=== PATIENT | female | born 1965 | race American Indian/Alaskan Native ===

== ENCOUNTER 2017-05-27 11:43 | Emergency (ER) | payer OTHER ==
[2017-05-27 11:43] VITALS: BMI 33.9
[2017-05-27] MEDS ORDERED: Sodium Chloride 0.9% 1,000 ML IV ONE (12:14)
--- NOTE | 2017-05-27 12:14 | C.PDOC ---
History Of Present Illness Patient is a 52 y/o female, whose PMHx includes diabetes, that presents to the ED for evaluation of dizziness, lightheadedness, and generalized weakness since this morning. Patient notes blurry vision, and also reports feeling flushed, and not feeling well. Patient states that she is non-compliant with her Metformin medication for the last 8 months, but reports taking a dose today when she noticed her blood sugar level was high. Otherwise, denies any headache , numbness, fever, chills, chest pain, shortness of breath, or any other associated symptoms at this time. Time Seen by Provider: 05/27/17 12:09 Chief Complaint (Nursing): High Blood Sugar History Per: Patient History/Exam Limitations: no limitations Onset/Duration Of Symptoms: Hrs Current Symptoms Are (Timing): Still Present Causative (Exacerbating) Factor(s): Missed Taking Medication Associated Infectious Symptoms: denies: Cough, Sore Throat, Sinus Congestion, Dysuria, Urinary Urgency, Urinary Frequency, Nausea, Vomiting, Diarrhea Recent travel outside of the [place]: No Additional History Per: Patient Past Medical History Reviewed: Historical Data, Nursing Documentation, Vital Signs - Medical History PMH: Anemia, Diabetes, HTN Denies: Chronic Kidney Disease - [facility] Procedures ESOPHAGOGASTRODUODENOSCOPY [EGD] W/CLOSED BIOPSY (03/17/14) Family History: States: No Known Family Hx - Social History Hx Alcohol Use: Yes Hx Substance Use: No - Immunization History Hx Tetanus Toxoid Vaccination: No Hx Influenza Vaccination: No Review Of Systems Except As Marked, All Systems Reviewed And Found Negative. Constitutional: Positive for: Weakness. Negative for: Fever, Chills Eyes: Positive for: Vision Change (blurry vision) Cardiovascular: Positive for: Light Headedness. Negative for: Chest Pain, Palpitations Respiratory: Negative for: Cough, Shortness of Breath Gastrointestinal: Negative for: Nausea, Vomiting, Abdominal Pain Genitourinary: Negative for: Dysuria, Frequency Neurological: Positive for: Dizziness. Negative for: Weakness, Numbness, Headache Physical Exam - Physical Exam Appears: Non-toxic, No Acute Distress, Other (obese) Skin: Normal Color, Warm, Dry Head: Atraumatic, Normacephalic Eye(s): bilateral: Normal Inspection, EOMI Oral Mucosa: Dry Tongue: Other (dry tongue) Neck: Normal ROM, Supple Chest: Symmetrical, No Tenderness Cardiovascular: Rhythm Regular, No Murmur Respiratory: Normal Breath Sounds, No Rales, No Rhonchi, No Wheezing Gastrointestinal/Abdominal: Soft, No Tenderness Extremity: Normal ROM, No Pedal Edema, Capillary Refill (<2 sec.), No Deformity Neurological/Psych: Oriented x3, Normal Speech, Normal Cognition ED Course And Treatment - Laboratory Results Result Diagrams: 05/27/17 12:21 05/27/17 12:21 Lab Interpretation: Abnormal (WBC 11.1, BUN 26, Glucose 359) ECG: Interpreted By Me ECG Rhythm: Sinus Rhythm ECG Interpretation: Normal Progress Note: Labs ordered and reviewed. Patient was given IV fluids in the ER. Reevaluation Time: 15:26 Reassessment Condition: Improved (Better after IV fluids and SC Insulin.) Disposition Counseled Patient/Family Regarding: Studies Performed, Diagnosis, Need For Followup, Rx Given - Disposition Referrals: Miguel Stein MD [Staff Provider] - Disposition: HOME/ ROUTINE Disposition Time: 15:30 Condition: IMPROVED Prescriptions: metFORMIN [glucOPHAGE] 500 mg PO BID #60 tab Instructions: Diabetes Mellitus Type 2 in Adults (ED) - Clinical Impression Clinical Impression: Uncontrolled diabetes mellitus - Scribe Statement The provider has reviewed the documentation as recorded by the Petty Thompson Provider Attestation: All medical record entries made by the Petty were at my direction and personally dictated by me. I have reviewed the chart and agree that the record accurately reflects my personal performance of the history, physical exam, medical decision making, and the department course for this patient. I have also personally directed, reviewed, and agree with the discharge instructions and disposition.
[2017-05-27] MEDS ORDERED: Sodium Chloride 0.9% 1,000 ML ONE (12:21)
[2017-05-27 12:25] LABS: BASO # 0.1 K/uL (0.0-0.2); EOS # 0.2 K/uL (0.0-0.7); EOS % 1.8 % (0.0-4.0); LYMPH # 2.8 K/uL (1.0-4.3); LYMPH % 25.2 % (20.0-40.0); MEAN CORPUSCULAR HGB CONC 32.9 g/dL (33.0-37.0); MEAN PLATELET VOLUME 9.3 fL (7.2-11.7); MONO # 0.7 K/uL (0.0-0.8); MONO % 6.3 % (0.0-10.0); RED CELL DISTRIBUTION WIDTH 13.4 % (11.5-14.5); WHITE BLOOD COUNT 11.1 K/uL (4.8-10.8)
[2017-05-27 12:35] LABS: CHLORIDE 94 mmol/L (98-107)
[2017-05-27 12:36] LABS: POTASSIUM 4.5 mmol/L (3.6-5.2); SODIUM 133 mmol/L (132-148)
[2017-05-27 12:38] LABS: ALB/GLOB RATIO 1.1 (1.0-2.1); ALKALINE PHOSPHATASE 168 U/L (38-126); ALT/SGPT 42 U/L (9-52); AST/SGOT 32 U/L (14-36); BILIRUBIN,TOTAL 0.6 mg/dL (0.2-1.3); BLOOD UREA NITROGEN 26 mg/dL (7-17); CARBON DIOXIDE 28 mmol/L (22-30); GFR AFRICAN-AMERICAN > 60; TOTAL PROTEIN 7.6 g/dL (6.3-8.3)
[2017-05-27 12:39] LABS: CALCIUM 9.2 mg/dl (8.6-10.4); GLUCOSE,RANDOM 359 mg/dL (65-105)
[2017-05-27 12:49] LABS: RBC URINE 1 /hpf (0-3); URINE BILIRUBIN NEGATIVE (NEGATIVE); URINE BLOOD 1+ (NEGATIVE); URINE COLOR Yellow (YELLOW); URINE GLUCOSE (UA) 3+ mg/dL (Normal); URINE KETONE NEGATIVE (NEGATIVE); URINE LEUKOCYTE ESTERASE NEG Leu/uL (Negative); URINE PROTEIN NEGATIVE (NEGATIVE); URINE UROBILINOGEN NORMAL mg/dL (0.2-1.0); WBC URINE 2 /hpf (0-5)
[2017-05-27] MEDS ORDERED: (Novolin R) Insulin Human Regular 100 units/ml vial SC ONE (13:40)
[2017-05-27] MEDS ORDERED: (Novolin R) Insulin Human Regular 100 units/ml vial ONE (14:04)
[2017-05-27 15:45] VITALS: BP 127/84; PULSE 82; RESP 20; TEMP 97.8; O2SAT 97
--- NOTE | 2017-06-04 12:40 | CARD ---
APPROVED REPORT EKG Measurement Heart [id number] CO 160P36 [id number] <Conclusion> Normal sinus rhythm Normal ECG
== END 2017-05-27 15:43 | disposition home or self-care (01) ==
LOC: C.ER 11:43
DX: E11.65 Type 2 diabetes mellitus with hyperglycemia (principal)
CPT/HCPCS: 80053; 81001; 82948; 85025; 96360; 96372; 99285; J7040